=== PATIENT | male | born 1975 | race African-American/Black ===

== ENCOUNTER 2016-12-28 11:41 | Emergency (ER) | payer SELFPAY ==
[2016-12-28 11:50] VITALS: BP 157/100
[2016-12-28] MEDS ORDERED: Sodium Chloride 0.9% 10 ML Syringe FLUSH PRN (12:16)
[2016-12-28] MEDS ORDERED: Aspirin 81 MG Tab.Chew PO ONE (12:20)
[2016-12-28] MEDS ORDERED: Alum Hydrox/Mag Hydrox/Simeth 30 ML, Lidocaine 2% 15 ML PO ONE ×2 (12:20)
--- NOTE | 2016-12-28 12:21 | EDM.PDOC ---
ED HPI GENERAL MEDICAL PROBLEM - General Chief Complaint: Chest Pain Stated Complaint: CHEST PAIN Time Seen by Provider: 12/28/16 12:05 Source of Information: Reports: Patient History Limitations: Reports: No Limitations - History of Present Illness INITIAL COMMENTS - FREE TEXT/NARRATIVE: Patient is a 41 year old male who presents to the E.D. complaining of left lateral chest pain. States it started yesterday morning at 10 a.m. while at work sitting. Patient described as a tightness, crampy sensation worsen with palpation and taking a deep breath along with movement of his left arm. Yesterday at its peak was rated 10 out of 10. Subsided with taking ibuprofen. He did have some mild diaphoresis with onset that subsided as well. He had no further episodes throughout the day. This morning again experienced similar symptoms while working. Pain is currently a 7 out of 10 localized with no radiation to his arms or into his back. He had no shortness of breath or diaphoresis with onset. No nausea and vomiting, dizziness, lightheadedness, presyncopal episodes, neck pain, back pain, or any additional complaints. Past history includes hypertension Current medications unknown. Surgical history none stated Primary care provider none stated Patient has no first-degree relatives with coronary disease. Patient does not smoke. Utilize alcohol on a weekly basis. Denies recreational drug use. Chest Pain Score (Numeric/FACES): 6 - Related Data Allergies Allergy/AdvReac Type Severity Reaction Status Date / Time No Known Allergies Allergy Verified 12/28/16 11:50 Past Medical History Cardiovascular History: Reports: Hypertension Social & Family History - Tobacco Use Smoking Status *Q: Never Smoker - Caffeine Use Caffeine Use: Reports: Coffee, Tea - Recreational Drug Use Recreational Drug Use: No ED ROS GENERAL - Review of Systems Review Of Systems: ROS reveals no pertinent complaints other than HPI. ED EXAM, GENERAL - Physical Exam Exam: See Below Exam Limited By: No Limitations General Appearance: Alert, WD/WN, No Apparent Distress Eye Exam: Bilateral Eye: PERRL Ears: Hearing Grossly Normal Nose: Normal Inspection Throat/Mouth: Normal Voice, No Airway Compromise Head: Atraumatic, Normocephalic Neck: Normal Inspection, Supple, Non-Tender, Full Range of Motion. No: Lymphadenopathy (L), Lymphadenopathy (R) Respiratory/Chest: No Respiratory Distress, Lungs Clear, Normal Breath Sounds, No Accessory Muscle Use, Other (Tenderness along the left lateral chest increased with palpation and taking a deep breath. Also increased pain with lifting his arm above the shoulders.) Cardiovascular: Normal Peripheral Pulses, Regular Rate, Rhythm, No Murmur Peripheral Pulses: 2+: Radial (L), Radial (R) GI/Abdominal: Normal Bowel Sounds, Soft, Non-Tender, No Organomegaly, No Distention Back Exam: Normal Inspection, Full Range of Motion Extremities: Non-Tender, No Pedal Edema, Normal Capillary Refill Neurological: Alert, Oriented, CN II-XII Intact, Normal Cognition, No Motor/ Sensory Deficits Psychiatric: Normal Affect, Normal Mood Skin Exam: Warm, Dry, Intact, Normal Color Course - Vital Signs Last Recorded V/S: Last Vital Signs Temp 98.2 F 12/28/16 11:47 Pulse 77 12/28/16 11:47 Resp 16 12/28/16 11:47 BP 157/100 H 12/28/16 11:47 Pulse Ox 98 12/28/16 11:47 - Orders/Labs/Meds Orders: Active Orders 24 hr Category Date Time Status EKG Documentation Completion [RC] STAT Care 12/28/16 12:25 Active Peripheral IV Care [RC] . DIRECTED Care 12/28/16 12:16 Active Peripheral IV Insertion Adult [OM.PC] Stat Oth 12/28/16 12:16 Ordered Labs: Laboratory Tests 12/28/16 12/28/16 12/28/16 Range/Units 12:40 12:40 12:40 WBC 3.06 L (4.23-9.07) K/mm3 RBC 5.10 (4.63-6.08) M/mm3 Hgb 15.2 (13.7-17.5) gm/L Hct 45.2 (40.1-51.0) % MCV 88.6 (79.0-92.2) fl MCH 29.8 (25.7-32.2) pg MCHC 33.6 (32.2-35.5) g/dl RDW Std Deviation 40.8 (35.1-43.9) fL Plt Count 267 (163-337) K/mm3 MPV 8.3 L (9.4-12.3) fl Neut % (Auto) 53.3 (34.0-67.9) % Lymph % (Auto) 24.5 (21.8-53.1) % [place] % (Auto) 13.1 H (5.3-12.2) % Eos % (Auto) 7.8 H (0.8-7.0) Baso % (Auto) 1.3 H (0.1-1.2) % Neut # (Auto) 1.63 L (1.78-5.38) K/mm3 Lymph # (Auto) 0.75 L (1.32-3.57) K/mm3 [place] # (Auto) 0.40 (0.30-0.82) K/mm3 Eos # (Auto) 0.24 (0.04-0.54) K/mm3 Baso # (Auto) 0.04 (0.01-0.08) K/mm3 PT 11.1 (8.0-13.0) SECONDS INR 1.02 APTT (22-36) SECONDS Sodium 135 L (136-145) mEq/L Potassium 4.0 (3.5-5.1) mEq/L Chloride 97 L (98-107) mEq/L Carbon Dioxide 29 (21-32) mEq/L Anion Gap 13.0 (5-15) BUN 12 (7-18) mg/dL Creatinine 1.2 (0.7-1.3) mg/dL Est Cr Clr Drug Dosing 72.37 mL/min Estimated GFR (MDRD) > 60 (>60) mL/min BUN/Creatinine Ratio 10.0 L (14-18) Glucose 101 (74-106) mg/dL Calcium 8.9 (8.5-10.1) mg/dL Total Bilirubin 0.7 (0.2-1.0) mg/dL AST 47 H (15-37) U/L ALT 48 (16-63) U/L Alkaline Phosphatase 56 (46-116) U/L Troponin I < 0.017 (0.00-0.056) ng/mL C-Reactive Protein < 0.2 (<1.0) mg/dL Total Protein 8.3 H (6.4-8.2) g/dl Albumin 4.3 (3.4-5.0) g/dl Globulin 4.0 gm/dL Albumin/Globulin Ratio 1.1 (1-2) // Range/Units 12:40 WBC (4.23-9.07) K/mm3 RBC (4.63-6.08) M/mm3 Hgb (13.7-17.5) gm/L Hct (40.1-51.0) % MCV (79.0-92.2) fl MCH (25.7-32.2) pg MCHC (32.2-35.5) g/dl RDW Std Deviation (35.1-43.9) fL Plt Count (163-337) K/mm3 MPV (9.4-12.3) fl Neut % (Auto) (34.0-67.9) % Lymph % (Auto) (21.8-53.1) % [place] % (Auto) (5.3-12.2) % Eos % (Auto) (0.8-7.0) Baso % (Auto) (0.1-1.2) % Neut # (Auto) (1.78-5.38) K/mm3 Lymph # (Auto) (1.32-3.57) K/mm3 [place] # (Auto) (0.30-0.82) K/mm3 Eos # (Auto) (0.04-0.54) K/mm3 Baso # (Auto) (0.01-0.08) K/mm3 PT (8.0-13.0) SECONDS INR APTT 27 (22-36) SECONDS Sodium (136-145) mEq/L Potassium (3.5-5.1) mEq/L Chloride (98-107) mEq/L Carbon Dioxide (21-32) mEq/L Anion Gap (5-15) BUN (7-18) mg/dL Creatinine (0.7-1.3) mg/dL Est Cr Clr Drug Dosing mL/min Estimated GFR (MDRD) (>60) mL/min BUN/Creatinine Ratio (14-18) Glucose (74-106) mg/dL Calcium (8.5-10.1) mg/dL Total Bilirubin (0.2-1.0) mg/dL AST (15-37) U/L ALT (16-63) U/L Alkaline Phosphatase (46-116) U/L Troponin I (0.00-0.056) ng/mL C-Reactive Protein (<1.0) mg/dL Total Protein (6.4-8.2) g/dl Albumin (3.4-5.0) g/dl Globulin gm/dL Albumin/Globulin Ratio (1-2) Meds: Medications Discontinued Medications Generic Name Dose Route Start Last Admin Trade Name Madhu PRN Reason Stop Dose Admin Aspirin 324 mg 12/28/16 12:20 12/28/16 12:30 Aspirin PO 12/28/16 12:21 324 mg ONETIME ONE Administration Al Hydroxide/Mg Hydroxide 30 0 ml 12/28/16 12:20 12/28/16 12:30 ml/ Lidocaine HCl 15 ml PO 12/28/16 12:21 45 ml ONETIME ONE Administration Sodium Chloride 10 ml 12/28/16 12:16 12/28/16 12:31 Saline Flush FLUSH 10 ml ASDIRECTED PRN Administration Keep Vein Open - Re-Assessments/Exams Free Text/Narrative Re-Assessment/Exam: PERC rule negative. Will not obtain D-Dimer. Order peripheral IV. Initial labs and studies include a CBC, chem 14, troponin, CRP, PTT/INR, PTT, chest x-ray one view, and EKG. GI cocktail and ASA 324mg PO ordered. EKG did reveal sinus rhythm at a rate of 77 with diffuse early repolarization pattern. No acute ST changes noted. 12/28/16 12:23 12/28/16 13:[address] Juárez. No acute findings noted. Final interpretation pending. 12/28/16 13:52 Labs CBC essentially normal. Coags within normal limits. Sodium 135, potassium 4.0, creatinine 1.2, AST mildly elevated at 47, troponin less than 0.017, CRP less than 0.2. Will discharge patient home with instructions as documented. Etiology current complaint muscle skeletal in nature. Low probability heart related. Pain is reproducible with palpation and movement of his left arm. Departure - Departure Time of Disposition: 13:53 Disposition: Home, Self-Care 01 Condition: Good Clinical Impression: Atypical chest pain Instructions: Nonspecific Chest Pain, [id number] Referrals: PCP,None [Primary Care Provider] - Khushboo Ryan [Physician] - Forms: ED Department Discharge, ED Return to Work/School Form Additional Instructions: Labs, EKG, and chest x-ray did not reveal any concerning findings. Etiology current complaint most likely musculoskeletal in nature. Treatment is symptomatically care only this includes: Ibuprofen and Tylenol in alternating fashion for pain. Refrain from any activities that cause worsening pain. Follow- up with primary care provider in the next 3-5 days for reevaluation. Return to the ED for any new or worsening symptoms. - My Orders Last 24 Hours: My Active Orders 12/28/16 12:16 Peripheral IV Care [RC] . DIRECTED Peripheral IV Insertion Adult [OM.PC] Stat 12/28/16 12:25 EKG Documentation Completion [RC] STAT - Assessment/Plan Last 24 Hours: My Active Orders 12/28/16 12:16 Peripheral IV Care [RC] . DIRECTED Peripheral IV Insertion Adult [OM.PC] Stat 12/28/16 12:25 EKG Documentation Completion [RC] STAT
--- NOTE | 2016-12-28 15:06 | CR ---
Chest: Portable view of the chest was obtained. Comparison: No previous study. Pleural thickening is noted within the right lung apex. Parenchymal density also noted within the right lung apex. Lungs otherwise are clear. Heart size is normal. Slightly prominent upper mediastinum is seen. Impression: 1. Right upper lobe changes most likely chronic although old films would be helpful to confirm. 2. Slightly prominent upper mediastinum is seen. 3. Nothing acute is otherwise identified. Note: Please correlate if patient's symptoms warrant chest CT to further evaluate. Diagnostic code #3
== END 2016-12-28 14:00 | disposition home or self-care (01) ==
LOC: JD.ED 11:41
DX: R07.89 Other chest pain (principal); I10 Essential (primary) hypertension
CPT/HCPCS: 36415; 71010; 80053; 84484; 85025; 85610; 85730; 86140; 93005; 99285; A9270; J7050; 99284

== ENCOUNTER 2017-12-28 16:06 | Emergency (ER) | payer BC ==
[2017-12-28] MEDS ORDERED: Sodium Chloride 0.9% 10 ML Syringe FLUSH PRN (16:43)
--- NOTE | 2017-12-28 17:21 | EDM.PDOC ---
<Radu Davis - Last Filed: 12/28/17 17:43> ED HPI GENERAL MEDICAL PROBLEM - General Chief Complaint: Chest Pain Stated Complaint: CHEST PAIN Time Seen by Provider: 12/28/17 16:31 Source of Information: Reports: Patient History Limitations: Reports: No Limitations - History of Present Illness INITIAL COMMENTS - FREE TEXT/NARRATIVE: Patient is a 42-year-old male who presents to the ED with chest pain. It started gradually this morning at 8 am and has continued throughout the day. The pain is located around the right upper chest and radiates to the right neck when he lifts his right arm. 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 He did take Ibuprofen at earlier this morning without relief. He had a similar episode of chest pain about one year ago that did not reveal any significant findings. Reports one episode of diaphoresis this morning, otherwise he denies nausea, vomiting, chills, fever, or chest pressure. He does have a history of hypertension. Denies any recent injury or illness. 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 Chest Pain Score (Numeric/FACES): 6 - Related Data Allergies Allergy/AdvReac Type Severity Reaction Status Date / Time No Known Allergies Allergy Verified 12/28/17 16:17 Home Meds: Home Meds Ibuprofen 600 mg PO Q6HR PRN 12/28/17 [History] amLODIPine Besylate [Norvasc] 5 mg PO DAILY 12/28/17 [History] Past Medical History Cardiovascular History: Reports: Hypertension Social & Family History - Family History Family Medical History: Noncontributory - Tobacco Use Smoking Status *Q: Never Smoker - Caffeine Use Caffeine Use: Reports: Tea - Alcohol Use Days Per Week of Alcohol Use: 7 Number of Drinks Per Day: 4 Total Drinks Per Week: 28 - Recreational Drug Use Recreational Drug Use: No ED ROS GENERAL - Review of Systems Constitutional: Reports: Diaphoresis. Denies: Fever, Chills, Malaise Respiratory: Denies: Shortness of Breath, Pleuritic Chest Pain, Cough Cardiovascular: Reports: Chest Pain. Denies: Dyspnea on Exertion, Lightheadedness, Palpitations GI/Abdominal: Denies: Abdominal Pain, Nausea, Vomiting Musculoskeletal: Reports: Neck Pain, Shoulder Pain, Arm Pain Psychiatric: Denies: Agitation, Anxiety ED EXAM, GENERAL - Physical Exam Exam Limited By: No Limitations General Appearance: Alert, WD/WN, No Apparent Distress. No: Anxious Eye Exam: Right Eye: Normal Inspection Neck: Supple, Full Range of Motion, Tender Lateral (referred pain from right arm movement) Respiratory/Chest: No Respiratory Distress, Lungs Clear, Normal Breath Sounds, No Accessory Muscle Use, Chest Non-Tender. No: Respiratory Distress, Crackles, Rhonchi Cardiovascular: Normal Peripheral Pulses, Regular Rate, Rhythm, No Edema, No Gallop, No JVD, No Murmur, No Rub GI/Abdominal: Normal Bowel Sounds, Soft, Non-Tender Neurological: Alert, Oriented, Normal Cognition Psychiatric: Normal Affect, Normal Mood Course - Vital Signs Last Recorded V/S: Last Vital Signs Temp 98.9 F 12/28/17 16:13 Pulse 78 12/28/17 17:35 Resp 17 12/28/17 17:35 BP 146/93 H 12/28/17 17:35 Pulse Ox 100 12/28/17 17:35 - Orders/Labs/Meds Orders: Active Orders 24 hr Category Date Time Status EKG 12 Lead [EKG Documentation Completion] [RC] STAT Care 12/28/17 16:43 Active Peripheral IV Care [RC] . DIRECTED Care 12/28/17 16:44 Active Chest 1V Frontal [CR] Stat Exams 12/28/17 16:43 Taken Sodium Chloride 0.9% [Saline Flush] Med 12/28/17 16:43 Active 10 ml FLUSH ASDIRECTED PRN Peripheral IV Insertion Adult [OM.PC] Stat Oth 12/28/17 16:44 Ordered Medication Orders Sodium Chloride (Saline Flush) 10 ml FLUSH ASDIRECTED PRN PRN Reason: Keep Vein Open Last Admin: 12/28/17 16:35 Dose: 10 ml Labs: Laboratory Tests 12/28/17 12/28/17 12/28/17 Range/Units 16:35 16:35 18:48 WBC 3.50 L (4.23-9.07) K/mm3 RBC 4.94 (4.63-6.08) M/mm3 Hgb 15.1 (13.7-17.5) gm/L Hct 45.1 (40.1-51.0) % MCV 91.3 (79.0-92.2) fl MCH 30.6 (25.7-32.2) pg MCHC 33.5 (32.2-35.5) g/dl RDW Std Deviation 40.4 (35.1-43.9) fL Plt Count 180 (163-337) K/mm3 MPV 8.8 L (9.4-12.3) fl Neut % (Auto) 60.8 (34.0-67.9) % Lymph % (Auto) 23.7 (21.8-53.1) % [place] % (Auto) 10.6 (5.3-12.2) % Eos % (Auto) 4.3 (0.8-7.0) Baso % (Auto) 0.6 (0.1-1.2) % Neut # (Auto) 2.13 (1.78-5.38) K/mm3 Lymph # (Auto) 0.83 L (1.32-3.57) K/mm3 [place] # (Auto) 0.37 (0.30-0.82) K/mm3 Eos # (Auto) 0.15 (0.04-0.54) K/mm3 Baso # (Auto) 0.02 (0.01-0.08) K/mm3 Sodium 135 L (136-145) mEq/L Potassium 3.8 (3.5-5.1) mEq/L Chloride 99 (98-107) mEq/L Carbon Dioxide 24 (21-32) mEq/L Anion Gap 15.8 H (5-15) BUN 18 (7-18) mg/dL Creatinine 1.0 (0.7-1.3) mg/dL Est Cr Clr Drug Dosing 100.83 mL/min Estimated GFR (MDRD) > 60 (>60) mL/min BUN/Creatinine Ratio 18.0 (14-18) Glucose 96 (74-106) mg/dL Calcium 9.2 (8.5-10.1) mg/dL Total Bilirubin 0.4 (0.2-1.0) mg/dL AST 194 H (15-37) U/L ALT 167 H (16-63) U/L Alkaline Phosphatase 72 (46-116) U/L Troponin I < 0.017 < 0.017 (0.00-0.056) ng/mL Total Protein 8.4 H (6.4-8.2) g/dl Albumin 4.2 (3.4-5.0) g/dl Globulin 4.2 gm/dL Albumin/Globulin Ratio 1.0 (1-2) Meds: Medications Generic Name Dose Route Start Last Admin Trade Name Freq PRN Reason Stop Dose Admin Sodium Chloride 10 ml 12/28/17 16:43 12/28/17 16:35 Saline Flush FLUSH 10 ml ASDIRECTED PRN Administration Keep Vein Open Departure - Departure Disposition: Home, Self-Care 01 Clinical Impression: Atypical chest pain Referrals: Lolita Tijerina PA-C [Primary Care Provider] - Forms: ED Department Discharge Additional Instructions: advil or ibuprofen 600 mg up to 3 times daily, follow up clinic if symptoms not resolving within 2 to 3 days as expected, return to ED as needed if symptoms worsening in any way. - My Orders Last 24 Hours: My Active Orders 12/28/17 16:43 EKG 12 Lead [EKG Documentation Completion] [RC] STAT Chest 1V Frontal [CR] Stat Sodium Chloride 0.9% [Saline Flush] 10 ml FLUSH ASDIRECTED PRN 12/28/17 16:44 Peripheral IV Care [RC] . DIRECTED Peripheral IV Insertion Adult [OM.PC] Stat - Assessment/Plan Last 24 Hours: My Active Orders 12/28/17 16:43 EKG 12 Lead [EKG Documentation Completion] [RC] STAT Chest 1V Frontal [CR] Stat Sodium Chloride 0.9% [Saline Flush] 10 ml FLUSH ASDIRECTED PRN 12/28/17 16:44 Peripheral IV Care [RC] . DIRECTED Peripheral IV Insertion Adult [OM.PC] Stat <Yang Marin - Last Filed: 12/28/17 19:45> ED ROS GENERAL - Review of Systems Review Of Systems: See Below ED EXAM, GENERAL - Physical Exam Exam: See Below EKG INTERPRETATION EKG Date: 12/28/17 Rhythm: NSR Gunpowder: Normal P-Wave: Present QRS: Normal ST-T: Other (mild st elev. 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 I agree with her hx and exam as documented. I have also evaluated patient. intial trop was nl, repeat 2 1/ 2 hr trop also normal. EKG did not show acute changes. Discharge instr. as documented. Departure - Departure Time of Disposition: 19:44 Condition: Fair
[2017-12-28 17:38] VITALS: BP 146/93
--- NOTE | 2017-12-29 06:51 | CR ---
Chest: Portable view of the chest was obtained. Comparison: Prior chest x-ray of 12/28/16. Pleural and parenchymal changes are seen within the right upper chest which appear stable from prior chest x-ray. Heart size is within normal limits for portable technique. Bony structures are grossly intact. Nodule is seen most likely due to granuloma within the left upper chest. Slight interstitial change within left upper chest is seen which is felt compatible with scarring. Impression: 1. Chronic change as noted above. Nothing acute is appreciated on portable chest x-ray. Diagnostic code #3
== END 2017-12-28 19:54 | disposition home or self-care (01) ==
LOC: JD.ED 16:06
DX: R07.89 Other chest pain (principal); I10 Essential (primary) hypertension; Z79.899 Other long term (current) drug therapy
CPT/HCPCS: 36415; 71045; 80053; 84484; 85025; 93005; 99285; J7050; 93010; 99284-25

== ENCOUNTER 2020-02-01 20:58 | Emergency (ER) | payer SELFPAY ==
[2020-02-01 21:06] VITALS: BP 162/113; PULSE 99
[2020-02-01] MEDS ORDERED: Sodium Chloride 0.9% 10 ML Syringe FLUSH PRN (21:15)
[2020-02-01] MEDS ORDERED: Ondansetron 4 MG/2 ML SDV IVPUSH ONE (21:15)
[2020-02-01] MEDS ORDERED: Aspirin 81 MG Tab.Chew PO ONE (21:15)
[2020-02-01] MEDS ORDERED: LORazepam 2 MG/ML SDV IVPUSH ONE ×2 (21:17→23:15)
[2020-02-01] MEDS ORDERED: Famotidine 20 MG/2 ML SDV IVPUSH ONE (21:17)
--- NOTE | 2020-02-01 23:12 | EDM.PDOC ---
ED HPI GENERAL MEDICAL PROBLEM - General Chief Complaint: Chest Pain Stated Complaint: CHEST PAIN/TIGHTNESS Time Seen by Provider: 02/01/20 21:06 Source of Information: Reports: Patient History Limitations: Reports: No Limitations - History of Present Illness INITIAL COMMENTS - FREE TEXT/NARRATIVE: The patient presents with left sided chest pain. This started yesterday. He elena s no shortness of breath with it. He has some nausea and vomiting. He admits to drinking daily but he has not had a drink in a couple of days. He has no fever but he does have chills. He has no diarrhea. He has a history of chest pain but no heart disease. He does not smoke. Onset: Gradual Duration: Day(s): Location: Reports: Chest Quality: Reports: Sharp Severity: Moderate Improves with: Reports: None Worsens with: Reports: None Associated Symptoms: Reports: Chest Pain, Fever/Chills, Nausea/Vomiting. Denies: Cough, Headaches, Shortness of Breath chest Pain Score (Numeric/FACES): 8 - Related Data Allergies Allergy/AdvReac Type Severity Reaction Status Date / Time No Known Allergies Allergy Verified 02/01/20 21:07 Home Meds: Home Meds Ibuprofen 600 mg PO Q6HR PRN 12/28/17 [History] amLODIPine Besylate [Norvasc] 5 mg PO DAILY 12/28/17 [History] LORazepam [Ativan] 1 mg PO DAILY #18 tablet 02/01/20 [Rx] Ondansetron [Zofran ODT] 4 mg PO Q6H PRN #20 tab.dis 02/01/20 [Rx] Past Medical History Cardiovascular History: Reports: Hypertension Social & Family History - Family History Family Medical History: Noncontributory - Tobacco Use Smoking Status *Q: Never Smoker - Caffeine Use Caffeine Use: Reports: Tea - Alcohol Use Days Per Week of Alcohol Use: 7 Number of Drinks Per Day: 10 Total Drinks Per Week: 70 - Recreational Drug Use Recreational Drug Use: No ED ROS GENERAL - Review of Systems Review Of Systems: See Below Constitutional: Reports: Chills. Denies: Fever HEENT: Reports: No Symptoms Respiratory: Reports: No Symptoms Cardiovascular: Reports: Chest Pain Endocrine: Reports: No Symptoms GI/Abdominal: Reports: Nausea, Vomiting. Denies: Abdominal Pain : Reports: No Symptoms Musculoskeletal: Reports: No Symptoms Skin: Reports: No Symptoms ED EXAM, GENERAL - Physical Exam Exam: See Below Exam Limited By: No Limitations General Appearance: Alert, No Apparent Distress Ears: Normal External Exam Nose: Normal Inspection Throat/Mouth: Normal Inspection Head: Atraumatic, Normocephalic Neck: Normal Inspection Respiratory/Chest: No Respiratory Distress, Lungs Clear, Normal Breath Sounds Cardiovascular: Regular Rate, Rhythm, No Edema, No Murmur GI/Abdominal: Soft, Non-Tender, No Organomegaly, No Mass Back Exam: Normal Inspection Extremities: Normal Inspection EKG INTERPRETATION EKG Date: 02/01/20 Time: 21:11 Rhythm: NSR Rate (Beats/Min): 90 [place]: Normal P-Wave: Present QRS: Normal ST-T: Normal QT: Normal Course - Vital Signs Last Recorded V/S: Last Vital Signs Temp 96.4 F L 02/01/20 21:03 Pulse 99 02/01/20 21:03 Resp 20 02/01/20 21:03 BP 162/113 H 02/01/20 21:03 Pulse Ox 100 02/01/20 21:03 - Orders/Labs/Meds Orders: Active Orders 24 hr Category Date Time Status Cardiac Monitoring [RC] . DIRECTED Care 02/01/20 21:15 Active EKG Documentation Completion [RC] STAT Care 02/01/20 21:16 Active Peripheral IV Care [RC] . DIRECTED Care 02/01/20 21:17 Active Chest 1V Frontal [CR] Stat Exams 02/01/20 21:17 Taken Sodium Chloride 0.9% [Saline Flush] Med 02/01/20 21:15 Active 10 ml FLUSH ASDIRECTED PRN ED Antiemetic Medication Reflex [OM.PC] Stat Oth 02/01/20 21:16 Ordered Peripheral IV Insertion Adult [OM.PC] Stat Oth 02/01/20 21:15 Ordered Medication Orders Sodium Chloride (Saline Flush) 10 ml FLUSH ASDIRECTED PRN PRN Reason: Keep Vein Open Last Admin: 02/01/20 21:43 Dose: 10 ml Documented by: MIKE Labs: Laboratory Tests 02/01/20 02/01/20 02/01/20 Range/Units 21:09 21:09 21:09 WBC 3.28 L (4.23-9.07) K/mm3 RBC 4.37 L (4.63-6.08) M/mm3 Hgb 14.7 (13.7-17.5) gm/dl Hct 44.3 (40.1-51.0) % MCV 101.4 H (79.0-92.2) fl MCH 33.6 H (25.7-32.2) pg MCHC 33.2 (32.2-35.5) g/dl RDW Std Deviation 43.2 (35.1-43.9) fL Plt Count 282 D (163-337) K/mm3 MPV 8.5 L (9.4-12.3) fl Neut % (Auto) 75.0 H (34.0-67.9) % Lymph % (Auto) 9.5 L (21.8-53.1) % [place] % (Auto) 14.0 H (5.3-12.2) % Eos % (Auto) 0.3 L (0.8-7.0) Baso % (Auto) 1.2 (0.1-1.2) % Neut # (Auto) 2.46 (1.78-5.38) K/mm3 Lymph # (Auto) 0.31 L (1.32-3.57) K/mm3 [place] # (Auto) 0.46 (0.30-0.82) K/mm3 Eos # (Auto) 0.01 L (0.04-0.54) K/mm3 Baso # (Auto) 0.04 (0.01-0.08) K/mm3 Manual Slide Review Abnormal smear Sodium 135 L (136-145) mEq/L Potassium 4.4 (3.5-5.1) mEq/L Chloride 95 L (98-107) mEq/L Carbon Dioxide 22 (21-32) mEq/L Anion Gap 22.4 H (5-15) BUN 8 (7-18) mg/dL Creatinine 1.0 (0.7-1.3) mg/dL Est Cr Clr Drug Dosing 86.78 mL/min Estimated GFR (MDRD) > 60 (>60) mL/min BUN/Creatinine Ratio 8.0 L (14-18) Glucose 133 H (74-106) mg/dL Calcium 9.5 (8.5-10.1) mg/dL Magnesium 1.6 L (1.8-2.4) mg/dl Total Bilirubin 1.0 (0.2-1.0) mg/dL AST 143 H (15-37) U/L ALT 109 H (16-63) U/L Alkaline Phosphatase 87 (46-116) U/L Troponin I < 0.017 (0.00-0.056) ng/mL Total Protein 9.0 H (6.4-8.2) g/dl Albumin 4.3 (3.4-5.0) g/dl Globulin 4.7 gm/dL Albumin/Globulin Ratio 0.9 L (1-2) Ethyl Alcohol 0.00 (0.00) gm% Meds: Medications Generic Name Dose Route Start Last Admin Trade Name Freq PRN Reason Stop Dose Admin Sodium Chloride 10 ml 02/01/20 21:15 02/01/20 21:43 Saline Flush FLUSH 10 ml ASDIRECTED PRN Administration Keep Vein Open Discontinued Medications Generic Name Dose Route Start Last Admin Trade Name Freq PRN Reason Stop Dose Admin Aspirin 324 mg 02/01/20 21:15 02/01/20 21:41 Aspirin PO 02/01/20 21:16 324 mg ONETIME ONE Administration Famotidine 20 mg 02/01/20 21:17 02/01/20 21:43 Pepcid IVPUSH 02/01/20 21:18 20 mg ONETIME ONE Administration Lorazepam 1 mg 02/01/20 21:17 02/01/20 21:46 Ativan IVPUSH 02/01/20 21:18 1 mg ONETIME ONE Administration Ondansetron HCl 4 mg 02/01/20 21:15 02/01/20 21:45 Zofran IVPUSH 02/01/20 21:16 4 mg ONETIME ONE Administration - Re-Assessments/Exams Free Text/Narrative Re-Assessment/Exam: 02/01/20 23:11 I ordered an IV saline lock, EKG, CXR, labs, ativan 1mg IV, zofran 4mg IV, and labs. His EKG shows a NSR with no acute changes. His CXR looks good. His WBC was low at 3.28. His Na was low at 135. His anion gap was elevated at 22.4. His AST is elevated at 143. His ALT was elevated at 109. His troponin is negative. His ETOH is negative. 02/01/20 23:15 The patient was shaking and I feel he is in withdrawals. I will give him another dose of ativan and a prescription for more and some zofran. Departure - Departure Time of Disposition: 23:15 Disposition: Home, Self-Care 01 Condition: Good Clinical Impression: Atypical chest pain Alcohol withdrawal Qualifiers: Complication of substance-induced condition: uncomplicated Qualified Code(s): F10.230 - Alcohol dependence with withdrawal, uncomplicated Prescriptions: LORazepam [Ativan] 1 mg PO DAILY #18 tablet Ondansetron [Zofran ODT] 4 mg PO Q6H PRN #20 tab.dis PRN Reason: Nausea\vomiting Referrals: Lolita Tijerina PA-C [Primary Care Provider] - 1 Week Forms: ED Department Discharge Additional Instructions: Take the ativan as prescribed to help stop drinking and take the zofran for any nausea or vomiting. Please return if you are worse. Sepsis Event Note (ED) - Evaluation Sepsis Screening Result: No Definite Risk - Focused Exam Vital Signs: Vital Signs Temp Pulse Resp BP Pulse Ox 02/01/20 21:03 96.4 F L 99 20 162/113 H 100 - My Orders Last 24 Hours: My Active Orders 02/01/20 21:15 Cardiac Monitoring [RC] . DIRECTED Sodium Chloride 0.9% [Saline Flush] 10 ml FLUSH ASDIRECTED PRN Peripheral IV Insertion Adult [OM.PC] Stat 02/01/20 21:16 EKG Documentation Completion [RC] STAT ED Antiemetic Medication Reflex [OM.PC] Stat 02/01/20 21:17 Peripheral IV Care [RC] . DIRECTED Chest 1V Frontal [CR] Stat - Assessment/Plan Last 24 Hours: My Active Orders 02/01/20 21:15 Cardiac Monitoring [RC] . DIRECTED Sodium Chloride 0.9% [Saline Flush] 10 ml FLUSH ASDIRECTED PRN Peripheral IV Insertion Adult [OM.PC] Stat 02/01/20 21:16 EKG Documentation Completion [RC] STAT ED Antiemetic Medication Reflex [OM.PC] Stat 02/01/20 21:17 Peripheral IV Care [RC] . DIRECTED Chest 1V Frontal [CR] Stat
--- NOTE | 2020-02-02 11:30 | CR ---
Chest: Frontal view of the chest was obtained. Comparison: Prior chest x-ray of 12/28/17. Widening of the superior mediastinum is seen which is stable. Scarring is noted within the right upper chest which is also stable. Lung showed no acute parenchymal change. Heart size is normal. Bony structures are grossly intact. Impression: 1. Findings as noted above which are stable from prior chest x-ray. 2. Nothing acute is appreciated. Diagnostic code #2 This report was dictated in MDT
== END 2020-02-01 23:41 | disposition home or self-care (01) ==
LOC: JD.ED 20:58
DX: R07.89 Other chest pain (principal); F10.230 Alcohol dependence with withdrawal, uncomplicated; R11.2 Nausea with vomiting, unspecified; I10 Essential (primary) hypertension; Z79.899 Other long term (current) drug therapy
CPT/HCPCS: 36415; 71045; 80053; 80307; 83735; 84484; 85025; 93005; 96374; 96375; 96376; 99285; A9270; J2060; J2405; J3490